=== PATIENT | female | born 1955 | race Caucasian/White ===

== ENCOUNTER 2019-04-20 09:38 | Day surgery (SDC) | payer OTHER ==
[~2019-04-20] VITALS: Ht 154.9 cm; Wt 72.6 kg
[2019-04-20 10:33] VITALS: BP 130/63
[2019-04-20 17:18] VITALS: BP 125/70
== END 2019-04-20 16:45 | disposition home or self-care (01) ==
LOC: DS 09:38 → OR 13:30 → DS 13:30
DX: K64.8 Other hemorrhoids (principal); K60.2 Anal fissure, unspecified; K64.4 Residual hemorrhoidal skin tags
CPT/HCPCS: J1956; J2250; J3490; J7120

== ENCOUNTER 2019-07-17 22:49 | Inpatient (IN) | payer OTHER ==
[~2019-07-17] VITALS: Ht 154.9 cm; Wt 71.0 kg
[2019-07-17 22:58] VITALS: Ht 154.9 cm; Wt 71.0 kg
[2019-07-18 00:12] LABS: PLATELET COUNT 330 x10^3mcL (130-400)
[2019-07-18 00:18] LABS: CALCIUM 8.1 mg/dL (8.5-10.1); CARBON DIOXIDE 25.2 mmol/L (21-32); CREATININE SERUM 1.1 mg/dL (0.6-1.0); POTASSIUM SERUM 3.9 mmol/L (3.5-5.1)
[2019-07-18 00:19] LABS: BASOPHIL % 0 % (0-2); RED CELL DISTRIBUTION WIDTH 17.4 % (11.5-14.5)
[2019-07-18 00:31] LABS: T3 TOTAL 0.97 ng/mL
[2019-07-18 00:32] LABS: ALBUMIN 2.6 g/dL (3.4-5.0); BILIRUBIN TOTAL 0.3 mg/dL (0.20-1.00); C REACTIVE PROTEIN 2.8 mg/dL (<=0.9); TOTAL PROTEIN, SERUM 6.8 g/dL (6.4-8.2)
[2019-07-18 01:06] LABS: CK-MB 0.8 ng/mL (0-3.6); FREE T4 0.9 ng/dL (0.76-1.46); FREE THYROXINE INDEX 2.1 ug/dL (1.4-4.5); T4(THYROXINE) 5.9 ug/dL (4.7-13.3)
[2019-07-18 01:07] LABS: ERYTHROCYTE SED RATE 31 mm/hr (0-30)
[2019-07-18 04:00] VITALS: BP 127/45
[2019-07-18 04:26] LABS: CHOLESTEROL/HDL RATIO 2.5
[2019-07-18 07:12] LABS: microscopic required? YES; urine erythrocyte NEGATIVE (NEGATIVE)
[2019-07-18 08:27] VITALS: BP 123/63
[2019-07-18 09:07] LABS: CALCIUM 7.9 mg/dL (8.5-10.1); CARBON DIOXIDE 24.4 mmol/L (21-32); CHLORIDE SERUM 107 mmol/L (98-107); CREATININE SERUM 0.9 mg/dL (0.6-1.0); GFR1 > 60 mL/min; GLUCOSE SERUM 124 mg/dL (74-106); POTASSIUM SERUM 3.9 mmol/L (3.5-5.1); SODIUM SERUM 140 mmol/L (136-145)
[2019-07-18 09:56] LABS: BASOPHIL % 0.4 % (0-2); PLATELET COUNT 336 x10^3mcL (130-400)
[2019-07-18 09:59] LABS: RED CELL DISTRIBUTION WIDTH 17.6 % (11.5-14.5)
[2019-07-18 11:56] VITALS: BP 103/52
[2019-07-18 18:00] VITALS: BP 104/62
[2019-07-18 23:23] VITALS: BP 118/59
[2019-07-19 05:38] VITALS: BP 100/48
[2019-07-19 07:02] LABS: PLATELET COUNT 306 x10^3mcL (130-400)
[2019-07-19 07:09] LABS: BASOPHIL % 0 % (0-2); RED CELL DISTRIBUTION WIDTH 17.5 % (11.5-14.5)
[2019-07-19 07:15] LABS: CALCIUM 8.6 mg/dL (8.5-10.1); CARBON DIOXIDE 24.8 mmol/L (21-32); CHLORIDE SERUM 107 mmol/L (98-107); CREATININE SERUM 0.9 mg/dL (0.6-1.0); GFR1 > 60 mL/min; GLUCOSE SERUM 202 mg/dL (74-106); PHOSPHOROUS 2.8 mg/dL (2.5-4.9); POTASSIUM SERUM 4.2 mmol/L (3.5-5.1); SODIUM SERUM 140 mmol/L (136-145)
[2019-07-19 08:36] VITALS: BP 132/63
[2019-07-19 16:30] VITALS: BP 127/83
[2019-07-19 20:00] VITALS: BP 120/65
[2019-07-20 05:38] VITALS: BP 119/58
[2019-07-20 07:30] LABS: BASOPHIL % 0.2 % (0-2); PLATELET COUNT 346 x10^3mcL (130-400)
[2019-07-20 07:48] LABS: RED CELL DISTRIBUTION WIDTH 17.5 % (11.5-14.5)
[2019-07-20 10:38] LABS: CALCIUM 8.7 mg/dL (8.5-10.1); CARBON DIOXIDE 22.2 mmol/L (21-32); CHLORIDE SERUM 108 mmol/L (98-107); CREATININE SERUM 0.9 mg/dL (0.6-1.0); GFR1 > 60 mL/min; GLUCOSE SERUM 202 mg/dL (74-106); MAGNESIUM 2.2 mg/dL (1.8-2.4); PHOSPHOROUS 3.2 mg/dL (2.5-4.9); POTASSIUM SERUM 4.1 mmol/L (3.5-5.1); SODIUM SERUM 141 mmol/L (136-145)
[2019-07-20] MEDS ORDERED: LEVAQUIN500 M1 PO (14:51)
[2019-07-20] MEDS ORDERED: PRE20 PO (14:51)
[2019-07-20 15:44] VITALS: BP 123/78
[2019-07-22 10:10] LABS: CK-BB 0 % (0); CK-MB 0 % (0-3); CK-MM 100 % (97-100); MACRO TYPE 1 0 % (Not Observed); MACRO TYPE 2 0 % (Not Observed)
== END 2019-07-20 17:07 | disposition home or self-care (01) | DRG 871 ==
LOC: ED 22:49 → DU 07-18 02:49
PROVIDERS: Internal Medicine; Specialist; ADMIT Internal Medicine
DX: A41.9 Sepsis, unspecified organism (principal); N17.0 Acute kidney failure with tubular necrosis; J96.01 Acute respiratory failure with hypoxia; J18.9 Pneumonia, unspecified organism; E44.0 Moderate protein-calorie malnutrition; J98.11 Atelectasis; F12.10 Cannabis abuse, uncomplicated; Z60.2 Problems related to living alone; E83.51 Hypocalcemia; D64.9 Anemia, unspecified; M79.7 Fibromyalgia; M19.90 Unspecified osteoarthritis, unspecified site; Z96.651 Presence of right artificial knee joint; Z68.23 Body mass index [BMI] 23.0-23.9, adult; Z87.891 Personal history of nicotine dependence; Z92.21 Personal history of antineoplastic chemotherapy; Z85.038 Personal history of other malignant neoplasm of large intestine; Z88.0 Allergy status to penicillin; Z88.2 Allergy status to sulfonamides; Z90.49 Acquired absence of other specified parts of digestive tract; Z79.899 Other long term (current) drug therapy
CPT/HCPCS: 36600; 83880; 84439; 85378; 87804; 97116-GP; G0378; J0456; J1940; J1956; J2930; J7030; Q0092; Q9967; U0002

== ENCOUNTER 2019-09-03 00:35 | Inpatient (IN) | payer OTHER, SELFPAY ==
[~2019-09-03] VITALS: Ht 157.5 cm; Wt 68.5 kg
[~2019-09-03 00:35] MED LIST: LEVAQUIN500 M1 PO; PRE20 PO
[2019-09-03 00:37] VITALS: Ht 157.5 cm; Wt 68.5 kg
--- NOTE | 2019-09-03 00:43 | NUR ---
PLACED PT ON 4 LITERS OXYGEN VIA NC. SATURATION WENT UP TO 94%
--- NOTE | 2019-09-03 01:07 | NUR ---
PT RESTING IN BED, AAOX4 WITH C/O CHRONIC COUGH AND NOTED LOW O2 SAT AT HOME. PT STATES HX OF PNA IN JUNE 2019 AND IS F/U WITH LUNG DR FOR POLYPS FOUND IN CHEST XRAY AND NEED FOR O2 AT HOME. PT NOTED TO HAVE A CONGESTED COUGH WITH DESAT IN 02 SAT WITH EXERTION WHILE OFF OXYGEN. PT DENIES ANY FEVER, N/V/D/C, OR URINARY PROBLEMS AT THIS TIME. PT PLACED ON MONITOR. NO SIGNS OF DISTRESS AT THIS TIME. BREATH SOUNDS NOTED WITH [place] CRACKLES TO BASES.
[2019-09-03 01:36] LABS: BASOPHIL % 0.3 % (0-2); PLATELET COUNT 364 x10^3mcL (130-400)
[2019-09-03 01:45] LABS: CALCIUM 9.1 mg/dL (8.5-10.1); CARBON DIOXIDE 26.9 mmol/L (21-32); POTASSIUM SERUM 3.6 mmol/L (3.5-5.1)
[2019-09-03 01:50] LABS: BILIRUBIN TOTAL 0.15 mg/dL (0.20-1.00); C REACTIVE PROTEIN 1.1 mg/dL (<=0.9); TOTAL PROTEIN, SERUM 6.9 g/dL (6.4-8.2)
--- NOTE | 2019-09-03 01:57 | NUR ---
RECEIVED SBAR FROM RANULFO HUNTER. PT AAOX4. IN POSITION OF COMFORT. COVID-[address] WILL CONTINUE POC.
--- NOTE | 2019-09-03 02:06 | NUR ---
PATIENT PROVIDED WITH BLANKET UPON REQUEST.
[2019-09-03 02:10] LABS: microscopic required? NO
[2019-09-03 02:28] LABS: urine erythrocyte NEGATIVE (NEGATIVE)
--- NOTE | 2019-09-03 03:29 | NUR ---
PATIENT TAKEN TO CT.
--- NOTE | 2019-09-03 03:42 | NUR ---
PATIENT TAKEN TO CT.
--- NOTE | 2019-09-03 05:03 | NUR ---
PT RESTING IN POSITION OF COMFORT. DENIES ANY NEEDS AT THIS TIME. WILL CONTINUE POC. PT AWARE OF ADMISSION.
--- NOTE | 2019-09-03 05:18 | NUR ---
REPORT GIVEN TO RANULFO ELIZALDE TO ASSUME CARE.
[2019-09-03 06:00] VITALS: BP 98/58
--- NOTE | 2019-09-03 06:00 | NUR ---
PATIENT ARRIVED FROM ER VIA GURNEY @ 0530. ADMITTED FOR SOB, HYPOXEMIA AND R/O COVID, PLACED ON DROPLET/CONTACT PRECAUTIONS. A/O X4, VERBALLY RESPONSIVE, DENIES DIZZINESS. TELE #25, ST, HR 101. BREATHING EVEN AND UNLABORED, ON 4L NASAL CANNULA, SPO2 97%, DIMINISHED LUNG SOUNDS @ BASES. DENIES SOB AND PAIN, ABD SOFT AND FLAT, ACTIVE BOWEL SOUNDS. NO EDEMA NOTED. SKIN WARM, DRY AND INTACT. IV 20G LAC INTACT, FLUSHED AND SALINE LOCKED. ORIENTED PATIENT TO DEVICES AND ENVIRONMENT. CALL LIGHT WITHIN REACH, BED IN LOWEST POSITION. WILL ENDORSE CARE TO DAY NURSE.
[2019-09-03 06:40] VITALS: BP 98/58
--- NOTE | 2019-09-03 07:05 | NUR ---
RECEIVED PT FROM NIGHT RN. RESTING IN BED, AAOX4. VERBALLY RESPONSIVE. DENIES HEADACHE/DIZZINESS. RES E/U, DENIES SOB. ON 4 L/MIN VIA NC. TELE MONITOR [address], HR IN 100'S. PERIPHERAL PULSES PALPABLE W NO EDEMA NOTED. ABD SOFT. VOIDS IN BATHROOM WITHOUT DIFFICULTY. NO GI/ COMPLAINT. AMBULATORY AT BASELINE. SKIN DRY/WARM/INTACT. IV SITE TO LAC SL W NO REDNESS/SWELLING NOTED. DENIES PAIN/DISCOMFORT AT THIS TIME. BED IN LOWEST POSITION, CALL LIGHT WITHIN REACH
[2019-09-03 08:00] VITALS: BP 105/54
--- NOTE | 2019-09-03 09:33 | NUR ---
AM MEDICATIONS ADMINISTERED ORDERED. TOLERATED WELL. PLACED ON A CONTINUOUS PULSE OX ORDERED. O2 SAT AT 99% ON 4L/MIN NC. TITRATED DOWN O2. O2 SAT AT 98% ON 3 L/MIN NC. DENIES USING HOME O2. HR IN 100'S. OTHERWISE, VSS.
--- NOTE | 2019-09-03 12:35 | NUR ---
LUNCH TRAY BROUGHT IN. PT LAYING IN BED IN HIGH FOWLERS POSITION. PT ON THE PHONE TALKING TO FAMILY. RES E/U, NO SOB NOTED. O2 SAT AT 97% ON 3L/MIN. DECREASED O2 TO 2 L/MIN. O2 SAT AT 98% ON 2L/MIN VIA NC. DENIES SOB. NO ACUTE DISTRESS NOTED.
[2019-09-03 12:46] VITALS: BP 109/62
[2019-09-03 18:51] VITALS: BP 105/56
--- NOTE | 2019-09-03 19:14 | NUR ---
NO SIGNIFICANT CHANGES NOTED. NO ACUTE DISTRESS NOTED. DENIES ANY PAIN/DISCOMFORT. WILL ENDORSE TO NEXT SHIFT
--- NOTE | 2019-09-03 20:50 | NUR ---
PATIENT CALLED NURSING STATION STATED THAT SHE HAS A HEADACHE AND IS UNABLE TO SLEEP WELL AND REQUEST FOR AMBIEN. WILL GIVE TYLENOL PRN PER EMAR. [facility] DR. ZHONG TO REQUEST FOR AMBIEN.
--- NOTE | 2019-09-03 21:30 | NUR ---
CALLED DR. ZHONG TO FOLLOW-UP ON REQUEST FOR VERENICE, SHE STATED THAT SHE WILL PLACE THE ORDER.
[2019-09-03 22:08] VITALS: BP 101/66
--- NOTE | 2019-09-03 22:08 | NUR ---
PATIENT RESTING IN BED, A/O X4, VERBALLY RESPONSIVE, DENIES DIZZINESS. ON DROPLET/CONTACT PRECAUTIONS FOR R/O COVID, TEST RESULTS PENDING. BREATHING EVEN AND UNLABORED, ON 2L NC, SPO2 98%, DENIES SOB. TELE #25, [place], HR 101, DENIES CHEST PAIN. ABD SOFT AND ROUND. NO EDEMA NOTED. IV LAC INTACT, FLUSHED AND SALINE LOCKED. VS TAKEN AND WNL. STATED HEADACHE PAIN LEVEL 4/10, GAVE TYLENOL PRN PER EMAR. CALL LIGHT WITHIN REACH, BED IN LOWEST POSITION. WILL CONTINUE TO MONITOR.
--- NOTE | 2019-09-04 00:30 | NUR ---
PATIENT RESTING IN BED WITH EYES CLOSED. EVEN CHEST RISE AND FALL, SPO2 99%. SHOWS NO SIGN OF PAIN OR DISTRESS. CALL LIGHT WITHIN REACH, WILL CONTINUE TO MONITOR.
[2019-09-04 05:40] VITALS: BP 112/57
--- NOTE | 2019-09-04 05:40 | NUR ---
PATIENT RESTING IN BED, BREATHING EVEN AND UNLABORED ON 2L NC SPO 98%, DENIES SOB AND PAIN. VS TAKEN AND WNL. NO SIGNIFICANT CHANGES DURING SHIFT. CALL LIGHT WITHIN REACH, DROPLET AND SAFETY PRECAUTIONS MAINTAINED THROUGHOUT SHIFT.
[2019-09-04 07:17] LABS: BASOPHIL % 0.2 % (0-2); PLATELET COUNT 262 x10^3mcL (130-400)
[2019-09-04 07:21] LABS: RED CELL DISTRIBUTION WIDTH 14.8 % (11.5-14.5)
--- NOTE | 2019-09-04 07:30 | NUR ---
PT ENDORSE TO ME THIS MORNING, LAYING IN BED RESTING, AA/O X4/ BREATHNG EVEN AND UNLABOARD ON= CONT 02 SATING 99 % REMAINS ON 2L NC/ NO ACTE RESP DISTRESS OR SOB NOTED. TELE 25 NSR NOTED / DENIES ANY CP OR PRESSURE. BOWEL SOUNDS ACTIVE IN ALL QUADS, VOIDS FREELY. AMB. SKIN INTACT. IV TO THE LAC INTACT AND PATENT/ HEPLOCKED. REMAINS ON ISOLATION PENDING R/O. CALL LIGHT IN REACH. BED IN LOW POSITION. WILL CONTINUE TO MONITOR.
[2019-09-04 08:58] LABS: CALCIUM 8.8 mg/dL (8.5-10.1); CHLORIDE SERUM 106 mmol/L (98-107); CREATININE SERUM 0.9 mg/dL (0.6-1.0); GFR1 > 60 mL/min; GLUCOSE SERUM 97 mg/dL (74-106); PHOSPHOROUS 3.8 mg/dL (2.5-4.9); POTASSIUM SERUM 3.7 mmol/L (3.5-5.1); SODIUM SERUM 141 mmol/L (136-145)
[2019-09-04 09:34] VITALS: BP 115/52
--- NOTE | 2019-09-04 09:45 | NUR ---
PT C/O MULLER MEDICATED PER EMAR
[2019-09-04 09:57] LABS: MAGNESIUM 1.8 mg/dL (1.8-2.4)
--- NOTE | 2019-09-04 11:30 | NUR ---
ECHO PENDING. COVID TEST RESULT IS NEGATIVE BUT PATIENT YET TO BE CLEARED BY THE INFECTION CONTROL DEPT.(ACCORDING TO THE LIZETH LOUIS).
[2019-09-04 12:56] VITALS: BP 106/55
--- NOTE | 2019-09-04 15:34 | NUR ---
PT DECIDED TO STAY AND NOT LEAVE AMA, PLACE TELE 25 BACK ON AND REFUSING IV SITE. DR. MCKEON MADE AWARE.
--- NOTE | 2019-09-04 15:56 | NUR ---
CALLED [facility]/ PER RT MARVIN THEY ARE OUT FOR THE DAY/ WAS CALLING REGRADING WHEN ECHO/ BUBBLE STUDY WILL BE COMPLETE/ PT IS NEG FOR COVID-19.
--- NOTE | 2019-09-04 16:30 | NUR ---
HOME O2 EVALUATION DONE. PT DESATURATED TO 88% RA WHILE AMBULATING AND TACHYPNEIC WITH A RR: 38. RESULTS DOCUMENTED
[2019-09-04 17:13] VITALS: BP 130/70
--- NOTE | 2019-09-04 17:44 | NUR ---
NO ACUTE CHANGES AT THIS TIME, NO ACUTE RESP DISTRESS OR SOB NOTED, REMAINS ON 2L NC OFF AND ON/ EDUCATED PT ON PLACING 02 WHEN FEELING SOB/ PT AGREED. TELE25 SHOWING NSR AT THIS TIME/ DENIES ANY CP OR PRESSURE. CURRENTLY STILL REFUSING IV INSERT/ DR. MCKEON AWARE/ CALL LIGHT IN REACH. WILL ENDORSE TO INCOMING RN.
[2019-09-04 20:02] VITALS: BP 133/69
--- NOTE | 2019-09-04 20:11 | NUR ---
RECEIVED PT IN BED AAOX4 NO RESP DISTRESS NOTED , ON 2L N/C AT THE MOMENT PT'S OFF 02 , PER PT " SHE KNOWS WHEN TO USE 02. TELE [address] HR 111. NO IV AT THE MOMENT , PT REFUSED . CALL LIGHT WITHIN PT'S REACH , WILL CON'T TO MONITOR AND ASSIST PT WITH CARE .
--- NOTE | 2019-09-05 01:45 | NUR ---
PT C/O INSOMNIA AND SEVERE COUGH NO SOB NOTED, MEDICATED PT WITH AMBIEN 5MG AND ROBITTUSIN DM PO , WILL CON'T TO MONITOR AND ASSIST PT WITH CARE .
--- NOTE | 2019-09-05 03:30 | NUR ---
PT'S IN BED WITH EYES CLOSED , POST AMBIEN AND COUGH MEDS ,
[2019-09-05 05:51] VITALS: BP 117/67
--- NOTE | 2019-09-05 06:04 | NUR ---
PT;S IN BED AWAKE DENY SI AT THE MOMENT SITTER AT THE BEDSIDE FOR SAFETY .
--- NOTE | 2019-09-05 06:05 | NUR ---
NO CHANGES OF CONDITION NOTED , ALL DUE MEDS GIVEN NO REACTION NOTED, TELE NSR , CALL LIGHT WITHIN PT'S REACH , WILL CON'T TO MONITOR AND ASSIST PT WITH CARE .
--- NOTE | 2019-09-05 06:34 | NUR ---
I HAVE REVIEWED THE DATA COLLECTION BY CONDUCTOR PULLMAN (NAME):AMINATA COLEY ENTERED ON (DATE/TIME): I CONCUR WITH THE DATA AND ANY EXCEPTIONS OR COMMENTS ARE LISTED BELOW:
--- NOTE | 2019-09-05 07:19 | NUR ---
PT ENDORSE TO ME THIS MORNING, LAYING IN BED RESTING, AA/O X4, BREATHING EVEN AND UNLABORED ON 2L NC NO ACUTE RESP DISTRESS OR SOB NOTED. TELE 25 NSR/ DENIES ANY CP OR PRESSURE NOTED. DENIES ANY BOWEL DISCOMFORT/ LAST BM 09/03 PER PT . VOIDS FREELY. AMB STEADY. NO IV ACCESS PT REFUSING. CALL LIGHT IN REACH. BED IN LOW POSITION. WILL CONTINUE TO MONITOR.
[2019-09-05 07:20] LABS: BASOPHIL % 0.3 % (0-2); PLATELET COUNT 282 x10^3mcL (130-400)
[2019-09-05 07:35] LABS: CALCIUM 8.6 mg/dL (8.5-10.1); CARBON DIOXIDE 24.3 mmol/L (21-32); CHLORIDE SERUM 106 mmol/L (98-107); CREATININE SERUM 0.8 mg/dL (0.6-1.0); GFR1 > 60 mL/min; GLUCOSE SERUM 91 mg/dL (74-106); MAGNESIUM 1.8 mg/dL (1.8-2.4); PHOSPHOROUS 3.1 mg/dL (2.5-4.9); POTASSIUM SERUM 3.8 mmol/L (3.5-5.1); SODIUM SERUM 142 mmol/L (136-145)
[2019-09-05 07:55] LABS: RED CELL DISTRIBUTION WIDTH 16.1 % (11.5-14.5)
--- NOTE | 2019-09-05 08:25 | NUR ---
PT 02 THIS AM ON RA 90% PLACED 02 AT 2LNC = 98% C/O COUGH, MEDICATED PER EMAR. WILL CONTINUE TO MONITOR.
[2019-09-05 08:32] VITALS: BP 109/52
--- NOTE | 2019-09-05 10:47 | NUR ---
C/O MULLER 10/03 MEDICATED PER EMAR.
--- NOTE | 2019-09-05 11:52 | NUR ---
NEW IV TO THE RIGHT HAND 22G PLACE FOR ECHO BUBBLE STUDY.
[2019-09-05 12:06] VITALS: BP 128/73
[2019-09-05] MEDS ORDERED: PROAIR HFA8.5 GM INH (13:25)
[2019-09-05] MEDS ORDERED: MEDROL DOSEPAK4 MG PO (13:25)
[2019-09-05] MEDS ORDERED: AUGMENTIN1 TA1 PO (13:25)
[2019-09-05 16:18] VITALS: BP 129/77
--- NOTE | 2019-09-05 16:50 | NUR ---
[facility] CALLED AND STATED ANTIBIOTIC (AUGMENTIN) NEEDS TO BE CHANGED BECAUSE PT HAS ALLERGIE TO PCN/ DR. AVILA MADE AWARE AND [facility] NUMBER PROVIDED.
--- NOTE | 2019-09-05 18:40 | NUR ---
NO ACUTE CHANGES AT THIS TIME, NO ACUTE RESP DISTRESS OR SOB NOTED/ DENIES ANY CP OR PRESSURE. WILL ENDORSE TO INCOMING RN. PENDING DC
--- NOTE | 2019-09-05 18:52 | NUR ---
DISCHARGE INSTRUCTIONS WAS GIVEN TO PT INCLUDING MEDICAL FOLLOW-UP W/ PCP. NEW MEDICATIONS WERE DISCUSSED TO THE PATIENT. PATIENT STATED THAT [facility] HAS TEXTED HER THAT HER MEDICATIONS ARE READY TO BE PICKED-UP. PT STATED THAT DR. MCKEON SPOKE TO HER THAT THE AUGMENTIN MEDICATION HAS BEEN CHANGED TO A DIFFERENT ANTIBIOTIC AND WAS ELECTRONICALLY SENT TO [facility]. IV ON THE RIGHT HAND WAS REMOVED BY MARBIN LUZ, NO BLEEDING NOTED. TELE WAS REMOVED AND WAS RETURNED TO TELE MONITOR. PRIMARY NURSE ANGELINA SPOKE TO THE PATIENT THAT WE'RE WAITING FOR THE PORTABLE OXYGEN TO BE DELIVERED PRIOR TO DISCHARGE.
--- NOTE | 2019-09-05 19:59 | NUR ---
RECEIVED PT FROM PREVIOUS SHIFT. PT AWAITTING PORTABLE O2 DELIVERY FOR DISCHARGE. PT IN NO ACUTE DISTRESS. CALL LIGHT WITHIN REACH, BED IN LOW POSITION. WILL CONTINUE TO MONITOR.
--- NOTE | 2019-09-05 21:59 | NUR ---
BROUGHT PORTABLE O2 TO HOSPITAL FOR PATIENT TO SAFELY TRANSFER HOME. PT IN NO ACUTE DISTRESS. DISCHARGE INSTRUCTIONS GIVEN. ALL QUESTIONS AND CONCERNS ADDRESSED AT THIS TIME. PT WHEELED OUT BY [facility] VIA WHEELCHAIR. CARE ASSUMED BY AT THIS TIME. .
== END 2019-09-05 21:58 | disposition left against medical advice (07) | DRG 189 ==
LOC: ED 00:35 → DU 04:45
PROVIDERS: Specialist; ADMIT Student in an Organized Health Care Education/Training Program
DX: J96.21 Acute and chronic respiratory failure with hypoxia (principal); M79.7 Fibromyalgia; Z96.651 Presence of right artificial knee joint; Z53.29 Procedure and treatment not carried out because of patient's decision for other reasons; D64.9 Anemia, unspecified; Z88.2 Allergy status to sulfonamides; I27.20 Pulmonary hypertension, unspecified; Z88.0 Allergy status to penicillin; J40 Bronchitis, not specified as acute or chronic; Z20.828 Contact with and (suspected) exposure to other viral communicable diseases
CPT/HCPCS: 36600; 83880; 85378; 87804; G0378; J1644; J1956; J7030; Q0092; Q9967